=== PATIENT | male | born 1940 | race Caucasian/White ===

== ENCOUNTER 2016-09-27 13:26 | Day surgery (SDC) | payer MEDICARE, BC ==
[~2016-09-27 13:26] MED LIST: NORMAL SALINE 1,000 ML IV PRN
--- OUTSIDE RECORDS SUMMARY | 2016-09-27 13:30 | XMS REPORT | Continuity of Care Document ---
:1940 Author Organization [facility] ([facility]) Address [address] [place] [address] Phone [phone] Care Team Providers Name Role Phone Provider, No-Primary Care Primary Care Provider Unavailable Source Comments This disclosure is being made pursuant to the Care Everywhere program, applicable federal and state laws, and may not contain all informaitonavailable regarding this patient.[facility] ([facility]) Active Allergies and Adverse Reactions Not on File Current Medications Not on file Active Problems Not on file Social History Tobacco Use Types Packs/Day Years Used Date Never Assessed Plan of Care Health Maintenance Due Date Last Done Comments Hepatitis B Vaccine (1 of 3 - Primary Series) 1940 Tdap Vaccine 10/05/1951 Lipid Disorder Screening 1958 Td Vaccine 1958 Colonoscopy 1990 Prostate Cancer Screening 1990 Zoster Vaccine 2000 Pneumococcal Vaccine (1 of 2 - PCV13) 2005 Influenza Vaccine: Seasonal (#1) 01/10/2016 Results from Last 3 Months Not on file
--- NOTE | 2016-09-27 15:21 | OR ---
Operative Report - Dictated Report Narrative: Location: Main OR Anesthesia: MAC Preoperative Diagnosis: Nonobstructive urinary retention Postoperative Diagnosis: Same, evidence of colonization/cystitis, some diverticula, wide open short prostate fossa no evidence of obstruction Procedure: #1 flexible cystoscopy with washing for cytology Indications: 75-year-old male with history of several prior TURPs, evidence of elevated residual and prior urodynamics more consistent with nonobstructive retention. Has been on prophylaxis and done well but most recently had urinary abnormalities which have been successfully treated. He is bothered by overactive symptoms and nocturia and urge incontinence. Recent ultrasound with roughly 300 mL residual. Creatinine normal. Culture with resistant organisms. He has completed treatment dose antibiotics and the plan is to switch to methenamine hippurate. Above-mentioned procedures indicated to assess make sure there is no evidence of obstruction or other pathology. Description: Consent obtained. Placed in the supine position. Prepped and draped. Time-out taken . IV/Lv anesthesia administered Scope inserted into the urethra and navigated to the bladder with ease. Prostate is short, wide open, no evidence of obstruction. Upon entering bladder there is not a lot of heavy obstruction but capacity definitely increased. There are a few diverticula that were inspected without pathology. Anterior wall of the bladder with cystitis cystica type change and there is a little bit of debris. Ureters. Normal. On retroflexion bladder neck is normal and appears wide open. Remaining urethra is normal. EBL: 0 Specimen: Washing for cytology and culture Condition: tolerate procedure Important Findings: Everything points to nonobstructive retention likely with colonization. Truthfully I think InterStim is probably his best option short of a catheter or intermittent catheterization. Botox and anticholinergic would concern me significantly based on already elevated residual. FOLLOW UP: I will see him in 1-2 weeks to discuss InterStim in the setting of nonobstructive retention. He will finish antibiotics, discontinue his prophylactic antibiotic and start methenamine hippurate. He is starting to develop resistance.
[2016-09-27 16:54] VITALS: BP 109/58
== END 2016-09-27 13:27 | disposition home or self-care (01) ==
LOC: AMB 13:26
PROVIDERS: ATTEND Urology
PROC: 3E1K88X Irrigation of Genitourinary Tract using Irrigating Substance, Via Natural or Artificial Opening Endoscopic, Diagnostic (ICD-10-PCS; 2016-09-27)
PROC: 0TJB8ZZ Inspection of Bladder, Via Natural or Artificial Opening Endoscopic (ICD-10-PCS; principal; 2016-09-27 16:15)
DX: R33.9 Retention of urine, unspecified (principal); N30.90 Cystitis, unspecified without hematuria; N40.1 Benign prostatic hyperplasia with lower urinary tract symptoms; R33.8 Other retention of urine; E78.5 Hyperlipidemia, unspecified; Z87.891 Personal history of nicotine dependence; Z68.26 Body mass index [BMI] 26.0-26.9, adult

== ENCOUNTER 2018-09-16 06:28 | Inpatient (IN) ==
[~2018-09-16 06:28] MED LIST changes: +MORPHINE SULFATE 15 MG TABLET.SA PO PRN; -NORMAL SALINE 1,000 ML IV PRN; +ROPIVACAINE HCL/PF 100 MG, EPINEPHrine 0.2 MG, KETOROLAC TROMETHAMINE 30 MG in NORMAL S... IJ PRN; +TRANEXAMIC ACID 1,000 MG in NORMAL SALINE 100 ML IV PRN; +ceFAZolin SODIUM 1 GM VIAL IV PRN
[2018-09-16] MEDS: RINGER'S SOLUTION,LACTATED 1,000 ML IV PRN ×3 (07:25→09:20)
--- NOTE | 2018-09-16 07:30 | ANES ---
Anesthesia Pre Procedure Eval Vitals/Labs: Last Vital Signs Temp 36.8 C 09/16/18 06:46 Pulse 76 09/16/18 06:46 Resp 18 09/16/18 06:46 BP 126/68 09/16/18 06:46 Pulse Ox 98 09/16/18 06:46 HOME MEDICATIONS Ibuprofen [Motrin] 800 mg PO Q8H 09/26/16 [Last Taken 09/09/18] Lactulose [Enulose] 15 ml PO BID PRN 09/26/16 [Last Taken Unknown] Multivit-Min/FA/Lycopen/Lutein [Centrum Silver Tablet] 1 ea PO DAILY 09/26/16 [Last Taken 09/09/18] Omeprazole Magnesium [Prilosec Otc] 20 mg PO DAILY 09/26/16 [Last Taken 09/09/18] Tamsulosin HCl [Flomax] 0.4 mg PO DAILY@1800 09/26/16 [Last Taken 09/15/18] Polyvinyl Alcohol/Povidone/Pf [Refresh Classic Eye Drops] 1 ea OP TID 09/27/16 [Last Taken 09/15/18] atorvastatin 40 mg tablet 40 mg PO DAILY 12/11/17 [Last Taken 09/15/18] finasteride 5 mg tablet 5 mg PO DAILY 12/11/17 [Last Taken 09/09/18] Beta-Carotene(A) W-C , E/Min [Ocuvite] 1 tab PO DAILY 09/16/18 [Last Taken 09/09/18] Allergies/Adverse Reactions: Allergies Allergy/AdvReac Type Severity Reaction Status Date / Time No Known Drug Allergies Allergy Verified 05/30/18 15:04 - Planned Procedure Planned Procedure: Right Arthroplasty Total Knee Medication List Reviewed:: Yes Allergies Verified: Yes Medical History (Last Reviewed 09/16/18 @ 07:21 by Des Wall CRNA) Bladder problem L5 vertebral fracture Non-tobacco user Right shoulder pain Seldom use of alcohol Diverticulitis of colon Hernia Gastric ulcer Surgical History (Last Reviewed 09/16/18 @ 07:21 by Des Wall CRNA) History of bilateral cataract extraction H/O exploratory laparotomy History of cystoscopy 02/29/04 Valerie, Yolanda History of esophageal dilatation 09/25/07 Yeny. 03/16/16 Can History of esophagogastroduodenoscopy (EGD) 09/25/07 Peaspushpa w/dilation. 03/16/16 Cna-clotest negative, mild chronic gastritis. History of repair of hiatal hernia History of transurethral resection of prostate Onset Date: ~11/23/03 Dr Padilla Hx of colonoscopy 09/12/07 diverticulosis. 03/16/16 Dr North-diverticulosis, internal/external hemorrhoids leg surgery states no hardware, right leg History of appendectomy Family History (Last Reviewed 09/16/18 @ 07:21 by Des Wall CRNA) Father , pancreatic cancer Pancreatic cancer Aunt No problems noted. Grandmother No problems noted. Mother Alzheimers disease Daughter Diverticulitis Son H/O heart artery stent Hiatal hernia Son Alive and well Sister Macular degeneration Sister Unknown whether patient has any health problems Sister Unknown whether patient has any health problems Brother Unknown whether patient has any health problems - Family Anesthesia History Family History:: no untoward family reactions to anesthesia, no familial bleeding tendencies, no family history of clotting disorders, no family history of premature - Airway/Neck/Teeth Within Normal Limits:: Yes Teeth Condition: intact Mallampatti Score: 3 Thyromental (T-M) distance: > 6 cm Mandibulo Hyoid distance: > 3 cm - Respiratory Respiratory Physical: lungs clear Smoking Status: Never smoker Discussed smoking cessation including day of surgery: No Sleep Apnea currently treated: No Sleep Apnea by current assessment: No Discussed Risks/Treatment of FERCHO: No - Cardiovascular Tolerate Activity: Good Heart Sounds: S1 & S2, Regular - Anesthesia Assessment and Plan ASA Class: PS, II Anesthesia Type Plan: Block - Right ultrasound guided adductor canal nerve block for postop analgesia, Spinal
[2018-09-16] MEDS ORDERED: MAGNESIUM HYDROXIDE 30 ML UDC PO PRN (10:16)
[2018-09-16] MEDS ORDERED: MORPHINE SULFATE 2 MG/ML DISP.SYRIN IV PRN (10:16)
[2018-09-16] MEDS ORDERED: ONDANSETRON HCL/PF 2 MG/ML VIAL IV PRN (10:16)
[2018-09-16] MEDS ORDERED: ACETAMINOPHEN 500 MG TABLET PO PRN (10:16)
[2018-09-16] MEDS ORDERED: diphenhydrAMINE HCL 50 MG/ML VIAL IV PRN (10:16)
[2018-09-16] MEDS ORDERED: ZOLPIDEM TARTRATE 5 MG TABLET PO PRN (10:16)
[2018-09-16] MEDS ORDERED: MAG HYDROX/ALUMINUM HYD/SIMETH 30 ML UDC PO PRN (10:16)
[2018-09-16] MEDS ORDERED: LACTULOSE 10 G/15 ML BTL PO PRN (10:18)
--- NOTE | 2018-09-16 10:23 | OR ---
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 Procedure: Right computer navigated assisted Total knee arthroplasty. Surgeon: Filemon Zarate M.D. Dental Lab Technician: Preet Recinos PA-C (provided and essential set of skilled, educated hands that assisted with transfer, positioning, prepping, draping, manipulation, retraction, placement of jigs, injection, insertion of implants, irrigation, closure wounds, and dressings all of which could not be performed by the available surgical crew) Anesthesia: Spinal with regional block and local periarticular joint injection. Complications: None Specimens: Bone for disposal. Estimated blood loss: Minimal. Tourniquet time: 120 Minutes at 325 millimeters of mercury. Retained implants: Depuy Attune size 6 right lugged cemented posterior stabilized femoral component. Size 7 fixed-bearing cemented tibial platform. 6 by 5 millimeter posterior stabilized cross-linked tibial insert. 41 millimeter medialized patella button. Indications: Mr Gamboa is a 77-year-old gentleman who sustained a right femur fracture multiple years prior but developed right knee arthrosis and pain. This patient was followed in my clinic for period of time with significant complaints of right knee pain consistent with arthritic changes. He had failed conservative measures including, but not limited to, activity modification, passage of time, medications, and other conservative measures. Patient wished to proceed with surgical treatment. The risks, benefits, and alternatives were discussed in clinic. The risks of , blood clots, bleeding, infection, nerve/tendon blood vessel/ injury, malposition of components, intraoperative fracture, postoperative limited range of motion, persistent pain, failure of components, and need for additional procedures. Patient wished to proceed consent was obtained after answering all questions. Procedure: After marking the correct extremity on the floor, the patient was taken to the operating room. A timeout was performed. IV antibiotics consisting of Ancef were administered prior to the procedure. A regional followed by spinal anesthetic was induced by anesthesia, per my request, on the operative table with all bony prominences well-padded. Nix catheter was placed, and a bump was placed under the operative side buttock. SCDs and JERRY hose were utilized on the nonoperative leg. A well-padded tourniquet was applied to the operative thigh. The operative leg was then pre-scrubbed with alcohol, prepped, and draped in a standard sterile fashion. After exsanguinating the extremity with an Esmarch bandage, the tourniquet was inflated. After marking out the anterior knee for standard incision centered over the patella, the skin was incised and dissected down to the joint retinaculum. The joint retinaculum was marked out as well as the horizontal axis of the patella, and a standard medial parapatellar arthrotomy was then made. The most proximal aspect of the quadriceps tendon and the patella tendon insertion were protected from release. A partial synovectomy was performed as well as a resection of the infrapatellar fat pad. The distal femoral fat pad proximal to the trochlea was also resected using cautery. The soft tissues were elevated off the medial aspect of the proximal tibia using a King elevator ensuring that we did not transect the medial collateral ligament. Upon initial evaluation range of motion was approximately 10 degrees to 130 degrees of flexion. There were signs of advanced arthrosis in the lateral greater than medial and patellofemoral joint spaces. There were large marginal osteophytes which were removed with a rongeur. The knee was hyperflexed and the patella was tucked laterally. A drill pin was placed in the femur. The ChatterBlock computer navigation system was set up for the femur. This was utilized to the fact that his prior femoral trauma blocked the femoral canal for intramedullary steffen alignment. We initially cut 10 mm but repeated the resection at 12 mm due to his flexion contracture. The distal cut was made at 5 of valgus and neutral flexion. Next the distal femur was sized to a size 6. A posterior referencing guide was utilized to place the distal femoral cutting block in 3 degrees of external rotation. This was pinned into place. The rotation was confirmed both visually and based on anatomic landmarks. The 4 in 1 cutting jig of the appropriate size was utilized in order to make all bony cuts. The angle wing was used to ensure no notching. Retractors were utilized in order to protect surrounding soft tissues. This cut did not result in any excessive notching. We then cut the box centered over the distal femur. This allowed for resection of the anterior and posterior cruciate ligaments. I then turned my attention to the preparation of the tibia. Using the navigation system in order for placement of the jig, 2 millimeters of bone was resected off the medial articular surface. This was made perpendicular to the mechanical axis of the joint with the alignment steffen centered over the ankle mortise. The alignment steffen was checked and was noted to be parallel to the mechanical axis, centered over the medial one third of the tibial tubercle, paralleling the anterior surface of the tibia. We then turned our attention to the remaining meniscus and soft tissues. These were removed while protecting the surrounding ligaments and soft tissues. The marginal osteophytes off the anterior, posterior, medial, lateral aspects of the femur and tibia were removed. The tibia was sized out to a size 7. Next the tibia was drilled and punched in an externally rotated position. Next the trial femur and a series of tibial inserts were utilized in order to allow for full extension and maximal flexion. It was found that a 5 millimeter insert gave the best range of motion and stability at multiple flexion points as well as at full extension there was less than 2 mm of gapping both medially and laterally. There is minimal anterior translation with the knee at 90 degrees of flexion and no signs of being able to dislocate the knee. The patella was then prepared. The initial thickness was 25 millimeters. This was reamed down to 15 millimeters parallel to the anterior surface of the patella. It was sized out to a size 41 medialized patella button. This was then drilled and trialed. Without any medial restraint the patella tracked appropriately and did not sublux or dislocate. At this point, it was felt these were the appropriate sized implants, and all trials were removed. The standard periarticular joint injection consisting of ropivacaine, Toradol, and epinephrine were injected into the periarticular joint tissues. The bony surfaces were thoroughly irrigated with a pulsatile-suction saline irrigation device. The bony surfaces were then dried in preparation for placement of the implants. The cement was vacuum mixed per the costume maker's instructions. The cement was placed on the dry bony surfaces and posterior aspect of the implants. The implants were impacted into place, removing all extruded cement. At this point anesthesia administered tranexamic acid per protocol intravenously. The knee was placed in extension with axial loading with the trial insert while the cement cured. Once the cement cured, all remaining extruded cement was removed. The knee was placed through a range of motion with the trial insert to ensure appropriate range of motion and stability. Final range of motion was approximately 0 to 130 degrees. The knee was again thoroughly irrigated with pulsatile saline lavage. The final polyethylene insert was then impacted into place ensuring no retained soft tissues. The remaining periarticular joint injection was injected. A medium Hemovac drain was placed exiting superior laterally. The knee was then placed over a triangle and the arthrotomy was closed with interrupted #1 Vicryl after thoroughly irrigating the joint. The deep and subcutaneous tissues were closed with interrupted 0 and 3-0 Vicryl respectively. Skin was closed with a running subcutaneous 3-0 Monocryl and Prineo Dermabond dressing. 4 x 4's, Sof-Rol, and a full leg Jesus wrap were applied. All sponge, needle, blade, and instrument counts were correct prior to closing the wounds. Postoperative condition: The patient was awoken and transferred to the postanesthesia care unit in stable condition. Plan is to be admitted to the inpatient medical/surgical floor postoperatively for 24 hours of IV antibiotics, physical therapy, occupational therapy, and medical comanagement. Patient will be weightbearing as tolerated with range of motion as tolerated. DVT prophylax is will be with SCDs, JERRY hose, and pharmacological anticoagulation. Anticipated hospital stay is approximately 1-3 days.
--- NOTE | 2018-09-16 10:37 | ANES ---
Post Anesthesia Discharge - Transfer of Care Transfer of Care handoff given to nurse: Yes - Discharge from PACU Discharge from PACU when meets criteria: Yes - Discharge to ASU Discharge to ASU-no complications/pt stable: Yes
--- NOTE | 2018-09-16 10:39 | ANES ---
Anesthesia Procedure Note Procedure Note: ANESTHESIA PROCEDURE NOTE Date of Procedure: 09/16/2018. Time of procedure: 40. Performed by: Des Wall CRNA Dry Cleaning Teacher: None. Preprocedure diagnosis: Right knee degenerative joint disease. Post procedure diagnosis: Same. Procedure: Right ultrasound guided adductor canal block for postoperative analgesia. Indications: The patient is a 77 -year-old male, requesting right ultrasound- guided abductor canal block for postoperative analgesia related to right total knee arthroplasty. Findings: See below. Details of the procedure: The tissue over the intended target site was cleansed with ChloraPrepand draped in a sterile fashion. 2 ml Lidocaine 1 % was infiltrated to the skin and subcutaneous tissue at the intended target site. Under sterile technique and ultrasound guidance a 18-gauge Tuohy needle was inserted through the right sartorius muscle to the saphenous nerve just anterior and medial to the superficial femoral artery and vein. 15 mL's of 0.5% bupivacaine was injected after negative aspiration for blood. Needle tip and spread of local anesthetic surrounding the saphenous nerve was observed throughout the injection with real time ultrasound visualization. The Tuohy needle was then removed intact. No complications were noted. The images were retained in the hospital medical database . EBL: Minimal. Fluids: N/A. Specimen: N/A. Post procedure condition: The patient tolerated the procedure well. No complications were noted. Thank you for this consultation. Des Wall CRNA
[2018-09-16] MEDS: DEXTROSE 5%-LACTATED RINGERS 1,000 ML IV PRN ×2 (11:20→20:08)
[2018-09-16] MEDS: KETOROLAC TROMETHAMINE 15 MG/ML VIAL IV SCH ×3 (11:22→23:29)
[2018-09-16] MEDS: oxyCODONE HCL/ACETAMINOPHEN 1 TAB TABLET PO PRN ×2 (12:22→19:24)
[2018-09-16] MEDS: ceFAZolin SODIUM 1 GM in DEXTROSE 5 % IN WATER 50 ML IV SCH ×4 (12:23→18:32)
--- NOTE | 2018-09-16 13:56 | ANES ---
Post Anesthesia Assessment - Vital Signs Vitals: Last Vital Signs Temp 36.5 C 09/16/18 10:55 Pulse 73 09/16/18 10:55 Resp 16 09/16/18 10:55 BP 106/53 09/16/18 10:55 Pulse Ox 96 09/16/18 10:55 Airway Patency: Normal - Mental Status Level Of Consciousness: Awake - Pain Level Pain Score: 0 - N/V Assessment Nausea/Vomiting Presence: None Dehydration:: No
[2018-09-16] MEDS: POLYVINYL ALCOHOL 150 DROP BTL OP SCH ×2 (14:01→17:18)
[2018-09-16] MEDS ORDERED: TAMSULOSIN HCL 0.4 MG CAP.SR.24H PO SCH (18:00)
[2018-09-16] MEDS ORDERED: ROSUVASTATIN CALCIUM 20 MG TABLET PO SCH (21:00)
[2018-09-16] MEDS ORDERED: SENNOSIDES/DOCUSATE SODIUM 1 TAB TABLET PO SCH (21:00)
[2018-09-16] MEDS: MORPHINE SULFATE 15 MG TABLET.SA PO SCH (21:28)
[2018-09-17] MEDS: ceFAZolin SODIUM 1 GM in DEXTROSE 5 % IN WATER 50 ML IV SCH ×2 (00:30)
[2018-09-17] MEDS: KETOROLAC TROMETHAMINE 15 MG/ML VIAL IV SCH ×2 (04:45→11:11)
[2018-09-17] MEDS: oxyCODONE HCL/ACETAMINOPHEN 1 TAB TABLET PO PRN ×3 (04:57→14:26)
[2018-09-17 05:35] LABS: Hematocrit 35.2 % (42.0-52.0); Hemoglobin 11.4 gm/dL (13.5-18.0); Mean Cell Volume 91.7 fl (78-100); Mean Corpuscular Hemoglobin 29.7 pg (27-31); Mean Corpuscular Hgb Conc 32.4 g/dl (32-36); Mean Platelet Volume 9.6 fl (8-11.3); Platelet Count 190 K/mm3 (150-450); Red Blood Count 3.84 M/mm3 (4.7-6.0); Red Cell Distribution Width 14.1 % (11.5-14.0); White Blood Count 7.9 K/mm3 (4.0-10.5)
[2018-09-17 06:16] LABS: Anion Gap 9.1 mmol/L (6.8-13.8); BUN/Creatinine Ratio 18.9 (9.0-21.6); Calcium * 8.8 mg/dL (7.9-10.9); Carbon Dioxide 29.2 mmol/L (24-32.6); Estimated Creat Clear 57.5; Potassium 4.3 mmol/L (3.4-4.6)
[2018-09-17] MEDS ORDERED: PANTOPRAZOLE SODIUM 20 MG TABLET.DR PO SCH (09:00)
[2018-09-17] MEDS ORDERED: MULTIVIT-MIN/FA/LYCOPEN/LUTEIN 1 TAB TABLET PO SCH (09:00)
[2018-09-17] MEDS ORDERED: FINASTERIDE 5 MG TABLET PO SCH (09:00)
[2018-09-17] MEDS ORDERED: BETA-CAROTENE(A) W-C , E/MIN 1 TAB TABLET PO SCH (09:00)
[2018-09-17] MEDS: POLYVINYL ALCOHOL 150 DROP BTL OP SCH (09:07)
[2018-09-17] MEDS: MORPHINE SULFATE 15 MG TABLET.SA PO SCH (09:07)
[2018-09-17] MEDS ORDERED: ENOXAPARIN SODIUM 40 MG/0.4 ML SYRG SC SCH (09:16)
--- NOTE | 2018-09-17 11:58 | DS ---
(1) Status post right knee replacement Problem: Acute (2) Acute blood loss anemia Problem: Acute Description of Stay: Mr. Gamboa was admitted to the floor after undergoing right total knee arthroplasty. Tolerated this well. Was admitted to the floor postoperatively for 24 hours of IV antibiotics, pain control, medical comanagement, and occupational and physical therapy. OT and PT were consulted to assist with activities of daily living and ambulation. Was made weightbearing as tolerated with range of motion as tolerated. Pain was initially controlled with IV regimen. This was transitioned to oral once tolerating a by mouth intake. Was resumed on home diet and medications. Had a Nix catheter inserted and the operating room which was discontinued on postoperative day 1. A drain was placed intraoperatively into the knee which was discontinued on postoperative day 1. Lovenox SCD and JERRY hose were utilized for DVT prophylaxis. Vital signs remained stable to the hospital course. Serial labs were obtained which showed a final hemoglobin of 11.4 grams. BMP was reviewed and was stable. Physical examination throughout the hospital course showed an extremity that had sensation that was intact to light touch, palpable pulses, a benign wound, motor intact to the toes, ankle, and knee. Knee range of motion was approximately 5 degrees to 70 degrees. Once an oral pain regimen was tolerated and physical therapy goals were met, it was felt that they were stable for discharge to home. Instructions: Continue with weightbearing as tolerated and range of motion as tolerated. It is OK to shower on the wound if it is not draining. If you note any drainage or for comfort you can cover with dry gauze and tape. Change every 2-3 days as needed. Continue with physical therapy. Resume home diet. Report any fever over 101.5 Fahrenheit, uncontrolled pain, increased drainage, foul odor of drainage, new or increased calf pain or shortness of breath, or any other significant complaints. A 325mg dialy aspirin will be started after finishing anticoagulation if not allergic. Continue with JERRY hose on the operative extremity until instructed otherwise. No driving until instructed otherwise. Mr. Gamboa will be discharged with home health. The need for snf is for wound evaluation assistance with activities of daily living and the need for physical therapy is for progressive strengthening and increasing function status post right total knee arthroplasty. The need for home health care skilled services is directly related to time spent [id number] with Mr. Gamboa. Follow up in approximately 10-14 days. Procedures Performed: see notes below List Procedures: Right knee replacement Results and Findings: Lab Pending Results 09/17/18 05:25: WBC 7.9, RBC 3.84 L, Hgb 11.4 L, Hct 35.2 L, MCV 91.7, MCH 29.7, MCHC 32.4, RDW 14.1 H, Plt Count 190, MPV 9.6 09/17/18 05:25: Sodium 137, Plasma Sodium 137, Potassium 4.3, Chloride 103, Carbon Dioxide 29.2, Anion Gap 9.1, BUN 21, Creatinine 1.11, Est GFR (Non-Af Amer) 68, BUN/Creatinine Ratio 18.9, Random Glucose 110, Calcium 8.8 Discharge Location: Home Disposition: Home Health Service Home Health Agency: [facility] Condition: Good Discharge Activity: Activity as tolerated, Weight bearing, Other - with wheeled walker Discharge Diet: General/regular food, Low fat/chol Referrals: Sabnia Jimenez FNP [Primary Care Provider] - Additional Patient Instructions (free text): [facility] to follow at home. Please call and fax [facility] Follow up with Orthopedics Dr Zarate on Sunday10/08/18 at 9:15am. Prescriptions (Any new or edited meds): Enoxaparin Sodium [Lovenox] 40 mg SC Q24H #7 disp.syrin Morphine Sulfate [Ms Contin] 15 mg PO Q12H #20 tablet.sa oxyCODONE HCL/ACETAMINOPHEN [Percocet 5 MG/325 MG] 2 tab PO Q4H PRN #60 tab PRN Reason: Moderate Pain (Pain Scale 4-6) Sennosides/Docusate Sodium [Senokot-S] 2 tab PO HS #30 tab Complete Home Medications List: Complete Home Medication List: Multivit-Min/FA/Lycopen/Lutein [Centrum Silver Tablet] 1 ea PO DAILY 09/26/16 Omeprazole Magnesium [Prilosec Otc] 20 mg PO DAILY 09/26/16 Tamsulosin HCl [Flomax] 0.8 mg PO DAILY@1800 09/26/16 Polyvinyl Alcohol/Povidone/Pf [Refresh Classic Eye Drops] 1 ea OP TID 09/27/16 atorvastatin 40 mg tablet 40 mg PO DAILY 12/11/17 finasteride 5 mg tablet 5 mg PO DAILY 12/11/17 Beta-Carotene(A) W-C , E/Min [Ocuvite] 1 tab PO DAILY 09/16/18 Polyethylene Glycol 3350 [Miralax] 17 gm PO BID PRN 09/16/18 Enoxaparin Sodium [Lovenox] 40 mg SC Q24H #7 disp.syrin 09/17/18 Lactulose [Enulose] 10 g PO BID PRN btl 09/17/18 Morphine Sulfate [Ms Contin] 15 mg PO Q12H #20 tablet.sa 09/17/18 Sennosides/Docusate Sodium [Senokot-S] 2 tab PO HS #30 tab 09/17/18 oxyCODONE HCL/ACETAMINOPHEN [Percocet 5 MG/325 MG] 2 tab PO Q4H PRN #60 tab 09/17/18 Amb Orders for Discharge: PT Evaluation and Treatment* Facility: [facility], Location: Rehabilitation Services
[2018-09-17 13:56] VITALS: BP 139/68
== END 2018-09-17 15:03 | disposition home health service (06) | DRG 470 ==
LOC: SUR 06:28 → MS 07:12
PROVIDERS: ADMIT Orthopaedic Surgery; ATTEND Orthopaedic Surgery
CPT/HCPCS: 36415; 73560; 80048; 85027; 97110; 97116; 97161; 97165; 97530